=== PATIENT | female | born 1990 | race African-American/Black ===

== ENCOUNTER 2022-03-23 07:33 | Inpatient (IN) ==
[2022-03-23] MEDS ORDERED: LACTATED RINGERS 1,000 ML IV STA (08:02)
[2022-03-23] MEDS ORDERED: DIPH/TET/ACEL PERT BOOSTER VACCINE 0.5 ML VIAL IM ONE (08:02)
[2022-03-23] MEDS ORDERED: HYDROmorphone 1 MG/1 ML SYRINGE IV STA ×2 (08:02→10:50)
[2022-03-23] MEDS ORDERED: ONDANSETRON 4 MG/2 ML VIAL IV STA ×2 (08:02→10:50)
[2022-03-23] MEDS ORDERED: HYDROmorphone 1 MG/1 ML SYRINGE ONE (08:03)
[2022-03-23] MEDS ORDERED: ONDANSETRON 4 MG/2 ML VIAL ONE (08:03)
[2022-03-23 08:15] LABS: Basophils # 0.1 10*3/uL (0.0-0.2); Basophils % 0.3 % (0.0-0.8); Eosinophils # 0.1 10*3/uL (0.0-0.87); Eosinophils % 0.5 % (0.00-10.9); Hematocrit 39.6 VOL% (35.7-47.0); Hemoglobin 12.1 GM/DL (12.0-16.0); Immature Granulocytes % 1.2 %; Immature Granulocytes Absolute 0.31 #; Lymphocytes # 3.2 10*3/uL (1.4-4.0); Lymphocytes % 12.4 % (21.3-54.2); Mean Corpuscular HGB Conc 30.6 GM/DL (32-36); Mean Corpuscular Volume 92.5 FL (87-102); Mean Platelet Volume 10.4 FL (9.6-12.0); Monocytes # 1.5 10*3/uL (0.11-0.8); Monocytes % 5.7 % (1.7-12.7); Neutrophils % 79.9 % (38.7-73.9); Platelet Count 357 T/CUMM (130-400); Red Blood Count 4.28 MC/CUMM (3.8-5.5); Red Cell Distribution Width 14.6 % (9.3-17.3); White Blood Count 25.5 T/CUMM (4-12)
[2022-03-23 08:26] LABS: PT Patient Result 10.8 SECS (10.1-12.1); Partial Thromboplastin Time 23.9 SECS (23.7-32.9)
[2022-03-23 08:36] LABS: Band Neutrophils 1 % (0-10); Eosinophils 1 % (0-10); Lymphocytes 16 % (20-55); Platelet Estimate Adequate; Total Cells Counted 100
[2022-03-23] MEDS ORDERED: INSULIN LISPRO 100 UNIT/ML SUBCUT STA (08:46)
[2022-03-23 08:48] LABS: Arterial Base Excess iSTAT -4 MMOL/L (-2.5-2.5); Arterial Bicarbonate iSTAT 22.1 MMOL/L (20-26); Arterial O2 Saturation iSTAT 96 % (95-100); Arterial PCO2 iSTAT 44 MM HG (35-48); Arterial PO2 iSTAT 87 MM HG (80-95); Arterial Total CO2 iSTAT 23 MMO/L (23-27); Arterial pH iSTAT 7.311 (7.35-7.45)
[2022-03-23 09:24] LABS: Alanine Aminotransferase 57 U/L (13-56); Albumin 3.3 G/DL (3.4-5.0); Alkaline Phosphatase 140 U/L (45-117); Aspartate Amino Transferase 121 U/L (0-37); Bilirubin,Total < 0.39 MG/DL (0.20-1.00); Blood Urea Nitrogen 6 MG/DL (7-18); Calcium 8.1 MG/DL (8.5-10.1); Carbon Dioxide 21 MMOL/L (21-32); Chloride 112 MMOL/L (98-107); Glucose 134 MG/DL (74-106); Osmolality,Calculated 280.3 MOS/KG (273-304); Potassium 3.6 MMOL/L (3.5-5.1); Sodium 141 MMOL/L (136-145); Total Protein 7.8 G/DL (6.4-8.2)
[2022-03-23] MEDS ORDERED: ALBUTEROL/IPRATROPIUM 3 ML NEB RESP TX PRN (10:50)
[2022-03-23] MEDS ORDERED: HYDROmorphone 1 MG/1 ML SYRINGE IV PRN (10:50)
[2022-03-23] MEDS ORDERED: ACETAMINOPHEN 325 MG TABLET PO PRN (10:50)
[2022-03-23] MEDS ORDERED: ceFAZolin 2,000 MG/50 ML DUPLEX IV ONE (10:53)
[2022-03-23] MEDS: KETOROLAC 15 MG/1 ML VIAL IV SCH ×3 (11:00→22:37)
[2022-03-23] MEDS: LACTATED RINGERS 1,000 ML IV SCH ×2 (11:28→21:33)
[2022-03-23 11:35] LABS: Bacteria,Urine Occasional /HPF (Few); Mucus,Urine Occasional /LPF (Occasional); RBC,Urine 13 /HPF (0-4); Squamous Epithelial Cell,Urine Occasional /HPF (0-10)
[2022-03-23 11:37] LABS: Bilirubin,Urine Negative (Negative); Blood, Urine Moderate mg/dL (Negative); Glucose,Urine (UA) Negative (Negative); Ketones,Urine Negative (Negative); Nitrite,Urine Negative (Negative); Protein,Urine Negative (Negative); Urine Appearance Clear (Clear); Urine Color Straw (Yellow); Urine Specific Gravity 1.015 (1.001-1.035); Urine Urobilinogen 0.2 eU/dL (<2.0)
[2022-03-23 11:38] LABS: Barbiturates Screen,Urine Negative (Negative); Benzodiazepines Screen,Urine Negative (Negative); Cannabinoid Screen,Urine Positive (Negative); Opiate Screen,Urine Negative (Negative); Phencyclidine Screen,Urine Negative (Negative)
[2022-03-23] MEDS: ALBUTEROL/IPRATROPIUM 3 ML NEB RESP TX SCH ×2 (12:50→20:30)
[2022-03-23] MEDS: DOCUSATE SODIUM 100 MG CAPSULE PO SCH (21:34)
[2022-03-24] MEDS: ALBUTEROL/IPRATROPIUM 3 ML NEB RESP TX SCH ×4 (01:21→19:27)
[2022-03-24] MEDS: HYDROmorphone 1 MG/1 ML SYRINGE IV PRN ×3 (03:20→12:35)
[2022-03-24] MEDS: ONDANSETRON 4 MG/2 ML VIAL IV PRN (04:39)
[2022-03-24] MEDS: LACTATED RINGERS 1,000 ML IV SCH ×2 (04:40→13:12)
[2022-03-24 04:59] LABS: Basophils % 0.3 % (0.0-0.8); Eosinophils # 0.1 10*3/uL (0.0-0.87); Eosinophils % 0.6 % (0.00-10.9); Hematocrit 29.8 VOL% (35.7-47.0); Hemoglobin 9.4 GM/DL (12.0-16.0); Immature Granulocytes % 0.5 %; Immature Granulocytes Absolute 0.05 #; Lymphocytes # 2.4 10*3/uL (1.4-4.0); Lymphocytes % 21.3 % (21.3-54.2); Mean Corpuscular HGB Conc 31.5 GM/DL (32-36); Mean Corpuscular Volume 89.5 FL (87-102); Mean Platelet Volume 10.1 FL (9.6-12.0); Monocytes # 1.2 10*3/uL (0.11-0.8); Monocytes % 11.2 % (1.7-12.7); Neutrophils % 66.1 % (38.7-73.9); Platelet Count 248 T/CUMM (130-400); Red Blood Count 3.33 MC/CUMM (3.8-5.5); Red Cell Distribution Width 14.4 % (9.3-17.3)
[2022-03-24] MEDS ORDERED: ceFAZolin 2,000 MG/50 ML DUPLEX IV ONE (05:00)
[2022-03-24 05:20] LABS: Albumin 2.7 G/DL (3.4-5.0); Bilirubin,Total 0.7 MG/DL (0.20-1.00); Calcium 7.7 MG/DL (8.5-10.1); Osmolality,Calculated 271.8 MOS/KG (273-304); Potassium 3.3 MMOL/L (3.5-5.1); Total Protein 6.3 G/DL (6.4-8.2)
[2022-03-24] MEDS: KETOROLAC 15 MG/1 ML VIAL IV SCH ×2 (06:03→13:13)
[2022-03-24] MEDS ORDERED: BACITRACIN OINT 0.9 GM PACK TOP ONE (06:48)
[2022-03-24] MEDS ORDERED: MIDAZOLAM 2 MG/2 ML VIAL ONE ×2 (07:09→08:39)
[2022-03-24] MEDS ORDERED: fentaNYL 100 MCG/2 ML VIAL ONE ×2 (07:09)
[2022-03-24] MEDS ORDERED: propofoL 200 MG/20 ML VIAL IV ONE ×2 (07:09→11:21)
[2022-03-24] MEDS ORDERED: LIDOCAINE 2% 5 ML VIAL ONE (07:09)
[2022-03-24] MEDS ORDERED: DEXAMETHASONE 4 MG/1 ML VIAL ONE ×2 (07:18→10:02)
[2022-03-24] MEDS ORDERED: ROPIVACAINE 0.5% 30 ML VIAL ONE (07:18)
[2022-03-24] MEDS ORDERED: POTASSIUM CHLORIDE 20 MEQ TABLET PO ONE (10:00)
[2022-03-24] MEDS ORDERED: LACTATED RINGERS 1,000 ML IV ONE (10:02)
[2022-03-24] MEDS ORDERED: TRANEXAMIC ACID 1,000 MG/10 ML VIAL ONE (10:02)
[2022-03-24] MEDS ORDERED: ONDANSETRON 4 MG/2 ML VIAL ONE (10:02)
[2022-03-24] MEDS ORDERED: ROCURONIUM 50 MG/5 ML VIAL IV ONE (10:02)
[2022-03-24] MEDS ORDERED: PHENYLEPHRINE 1 MG/10 ML SYRINGE IV ONE (10:02)
[2022-03-24] MEDS ORDERED: ACETAMINOPHEN INJ 1,000 MG/100 ML VIAL IV ONE (10:02)
[2022-03-24] MEDS: DOCUSATE SODIUM 100 MG CAPSULE PO SCH ×2 (10:17→20:54)
[2022-03-24] MEDS: PANTOPRAZOLE 40 MG TABLET PO SCH (10:18)
[2022-03-24] MEDS ORDERED: MAGNESIUM HYDROXIDE SUSP 30 ML UDCUP PO PRN (11:14)
[2022-03-24] MEDS ORDERED: SEVOFLURANE 1 UNIT/15 MINUTE INH ONE (12:19)
[2022-03-24] MEDS ORDERED: NEOSTIGMINE 10 MG/10 ML VIAL ONE (12:31)
[2022-03-24] MEDS ORDERED: GLYCOPYRROLATE 0.4 MG/2 ML VIAL ONE (12:31)
[2022-03-24] MEDS ORDERED: ONDANSETRON 4 MG/2 ML VIAL IV PRN (12:32)
[2022-03-24] MEDS ORDERED: MEPERIDINE 50 MG/1 ML VIAL IV PRN (12:32)
[2022-03-24] MEDS ORDERED: PROMETHAZINE INJ 25 MG in SODIUM CHLORIDE 0.9% 50 ML IV PRN (12:32)
[2022-03-24] MEDS ORDERED: diphenhydrAMINE 50 MG/1 ML VIAL IV PRN (12:32)
[2022-03-24] MEDS ORDERED: ALBUTEROL/IPRATROPIUM 3 ML NEB RESP TX ONE (12:35)
[2022-03-24] MEDS ORDERED: PROMETHAZINE 25 MG/1 ML VIAL ONE (12:38)
[2022-03-24] MEDS: POTASSIUM CHLORIDE INJ 20 MEQ in LACTATED RINGERS 1,000 ML IV SCH ×2 (16:24→23:17)
[2022-03-24 17:27] LABS: Hemoglobin 9.9 GM/DL (12.0-16.0)
[2022-03-24] MEDS: ceFAZolin 2,000 MG/50 ML DUPLEX IV SCH (18:11)
[2022-03-25] MEDS: ALBUTEROL/IPRATROPIUM 3 ML NEB RESP TX SCH ×4 (00:22→19:26)
[2022-03-25] MEDS: ceFAZolin 2,000 MG/50 ML DUPLEX IV SCH (01:17)
[2022-03-25] MEDS: HYDROmorphone 1 MG/1 ML SYRINGE IV PRN ×6 (03:36→20:39)
[2022-03-25] MEDS: FONDAPARINUX 2.5 MG/0.5 ML SYRINGE SUBCUT SCH (05:11)
[2022-03-25 05:49] LABS: Basophils % 0.1 % (0.0-0.8); Hematocrit 25.6 VOL% (35.7-47.0); Immature Granulocytes % 0.7 %; Immature Granulocytes Absolute 0.11 #; Lymphocytes # 1.7 10*3/uL (1.4-4.0); Mean Corpuscular HGB Conc 31.3 GM/DL (32-36); Mean Corpuscular Volume 90.8 FL (87-102); Mean Platelet Volume 10.7 FL (9.6-12.0); Monocytes # 1.1 10*3/uL (0.11-0.8); Monocytes % 6.9 % (1.7-12.7); Neutrophils % 81.3 % (38.7-73.9); Platelet Count 223 T/CUMM (130-400); Red Blood Count 2.82 MC/CUMM (3.8-5.5); Red Cell Distribution Width 14.6 % (9.3-17.3); White Blood Count 15.6 T/CUMM (4-12)
[2022-03-25 06:13] LABS: Calcium 8.1 MG/DL (8.5-10.1); Osmolality,Calculated 276.4 MOS/KG (273-304); Potassium 4.2 MMOL/L (3.5-5.1)
[2022-03-25] MEDS ORDERED: MAGNESIUM SULF RIDER 4 GM/100 ML PREMIX IV PRN (08:41)
[2022-03-25] MEDS ORDERED: MAGNESIUM SULF RIDER 2 GM/50 ML PREMIX IV PRN (08:41)
[2022-03-25] MEDS: DOCUSATE SODIUM 100 MG CAPSULE PO SCH ×2 (08:55→20:38)
[2022-03-25] MEDS: PANTOPRAZOLE 40 MG TABLET PO SCH (08:55)
[2022-03-25] MEDS: ONDANSETRON 4 MG/2 ML VIAL IV PRN ×2 (09:43→13:43)
[2022-03-25] MEDS ORDERED: diphenhydrAMINE CAP 25 MG CAPSULE PO PRN (18:32)
[2022-03-26] MEDS: ALBUTEROL/IPRATROPIUM 3 ML NEB RESP TX SCH ×4 (01:14→19:46)
[2022-03-26] MEDS: HYDROmorphone 1 MG/1 ML SYRINGE IV PRN ×3 (01:34→09:01)
[2022-03-26 05:08] LABS: Basophils % 0.2 % (0.0-0.8); Eosinophils # 0.1 10*3/uL (0.0-0.87); Eosinophils % 0.5 % (0.00-10.9); Hematocrit 25.7 VOL% (35.7-47.0); Hemoglobin 7.9 GM/DL (12.0-16.0); Immature Granulocytes % 0.9 %; Immature Granulocytes Absolute 0.12 #; Lymphocytes # 3.1 10*3/uL (1.4-4.0); Lymphocytes % 23.5 % (21.3-54.2); Mean Corpuscular HGB Conc 30.7 GM/DL (32-36); Mean Corpuscular Volume 92.8 FL (87-102); Mean Platelet Volume 10.6 FL (9.6-12.0); Monocytes # 0.7 10*3/uL (0.11-0.8); Monocytes % 5.5 % (1.7-12.7); Neutrophils % 69.4 % (38.7-73.9); Platelet Count 243 T/CUMM (130-400); Red Blood Count 2.77 MC/CUMM (3.8-5.5); Red Cell Distribution Width 14.6 % (9.3-17.3); White Blood Count 13.4 T/CUMM (4-12)
[2022-03-26 05:27] LABS: Calcium 8.1 MG/DL (8.5-10.1); Osmolality,Calculated 274.5 MOS/KG (273-304); Potassium 3.6 MMOL/L (3.5-5.1)
[2022-03-26] MEDS: FONDAPARINUX 2.5 MG/0.5 ML SYRINGE SUBCUT SCH (06:23)
[2022-03-26] MEDS: DOCUSATE SODIUM 100 MG CAPSULE PO SCH ×2 (08:11→21:47)
[2022-03-26] MEDS: PANTOPRAZOLE 40 MG TABLET PO SCH (08:11)
[2022-03-27] MEDS: ALBUTEROL/IPRATROPIUM 3 ML NEB RESP TX SCH ×2 (00:30→07:15)
[2022-03-27] MEDS: FONDAPARINUX 2.5 MG/0.5 ML SYRINGE SUBCUT SCH (05:49)
[2022-03-27] MEDS: DOCUSATE SODIUM 100 MG CAPSULE PO SCH (08:23)
[2022-03-27] MEDS: PANTOPRAZOLE 40 MG TABLET PO SCH (08:23)
[2022-03-27 12:36] VITALS: BP 122/90
== END 2022-03-27 14:11 | disposition home or self-care (01) | DRG 958 ==
LOC: N.ED 07:33 → N.EDINP 10:50 → N.3E 16:00
PROVIDERS: ADMIT Surgery; ATTEND Surgery